=== PATIENT | female | born 1950 | race Caucasian/White ===

== ENCOUNTER 2024-11-17 20:14 | Emergency (ER) | payer MEDICARE ==
[2024-11-17] VITALS (9 sets, daily range): BP systolic 127–139; BP diastolic 50–64
[~2024-11-17] VITALS: Ht 157.5 cm; Wt 62.1 kg
[~2024-11-17 20:14] MED LIST: ALTOPREV40 MG PO; ATENOLOL25 MG PO; ESTRACE VAG0.1 MG/GM VA; LEVOTHYROXIN50 MC1 PO; TENORMIN25 M1
[2024-11-17] MEDS ORDERED: SODIUM CHLORIDE 0.9% 1,000 ML IV ONE (20:50)
[2024-11-17] MEDS ORDERED: Diph, Acellular Pertussis, Tet 0.5 ML/VIAL (Tdap) SDV IM ONE (20:50)
[2024-11-17] MEDS ORDERED: NEOMYCIN-BACITRACIN-POLYMYXIN 0.5 GM/PAK PAK TOP ONE (20:50)
[2024-11-17 21:13] LABS: BASO% 0.1 % (0-3); EOS% 0.1 % (0-8); HEMATOCRIT 38.5 % (37.0-47.0); HEMOGLOBIN 12.8 g/dl (12.0-16.0); IMMATURE GRANULOCYTES 0.1 % (0.0-5.0); MEAN CELL VOLUME 89.1 fL CALC (80.0-100.0); MEAN CORPUSCULAR HGB 29.6 pG CALC (26.0-32.0); MEAN CORPUSCULAR HGB CONC 33.2 g/dL CAL (32.0-36.0); MONO% 7.5 % (2-13); NEUT# 11.95 thou/uL (2.00-7.15); NEUT% 84.2 % (42-76); RED BLOOD COUNT 4.32 mill/uL (4.20-5.60); RED CELL DISTRI WIDTH 13.1 % (11.5-15.5)
[2024-11-17] MEDS ORDERED: SODIUM CHLORIDE 0.9% 100 ML IV ONE (21:19)
[2024-11-17 21:24] LABS: ALKALINE PHOSPHATASE 71 u/l (38-126); ANION GAP 10 (6-22 (CALC)); BILIRUBIN, TOTAL 0.8 mg/dL (0.02-1.3); BUN 9 mg/dL (8-23); BUN/CREATININE RATIO 13 (12-20 (CALC)); CARBON DIOXIDE 28 mmol/l (22-30); CHLORIDE 100 mmol/l (95-108); CREATININE 0.7 mg/dL (0.5-1.0); ESTIMATED GFR 91 ML/MIN (>=90 (CALC)); POTASSIUM 3.9 mmol/l (3.5-5.1); SGOT/AST 42 u/l (9-36); SODIUM 135 mmol/l (137-146); TOTAL PROTEIN 6.7 g/dL (6.3-8.2)
[2024-11-17 21:54] LABS: TSH, 3RD GENERATION 0.18 uIU/mL (0.47 - 4.68)
[2024-11-17 22:31] LABS: URINE BILIRUBIN - DIPSTICK Negative (NEGATIVE); URINE BLOOD DIPSTICK Negative (NEGATIVE); URINE COLOR Yellow; URINE GLUCOSE - DIPSTICK Negative (NEGATIVE); URINE KETONE Trace mg/dL (NEGATIVE); URINE LEUK ESTERASE Trace (NEGATIVE); URINE NITRITE - DIPSTICK Negative (Negative); URINE PROTEIN - DIPSTICK Negative (NEG-TRACE); URINE UROBILINOGEN - DIPSTICK 0.2 E.U./dL (0.2)
[2024-11-17] MEDS ORDERED: KEPPRA500 M2 PO (22:38)
[2024-11-17] MEDS ORDERED: ASPIRINCHW 81MG PO (22:57)
[2024-11-17] MEDS ORDERED: MULTIVITAMI9 PO (22:59)
[2024-11-17] MEDS ORDERED: OS-CAL 500500 M1 PO (23:12)
[2024-11-18] MEDS ORDERED: B COMPLEX FORMU1 TAB (01:14)
[2024-11-18] MEDS ORDERED: ATORVASTATIN CA20 MG PO (01:15)
[2024-11-18] MEDS ORDERED: VITAMIN C500 M6 PO (01:16)
[2024-11-18] MEDS ORDERED: AMLODIPINE BESYL5 MG PO (01:17)
[2024-11-18] MEDS ORDERED: LEVOTHYROXIN75 MC1 PO (01:19)
== END 2024-11-17 22:55 | disposition home or self-care (01) ==
LOC: ED 20:14
PROVIDERS: Family Medicine
DX: R55 Syncope and collapse (principal); R56.9 Unspecified convulsions; I10 Essential (primary) hypertension; F32.A Depression, unspecified; Z87.820 Personal history of traumatic brain injury
CPT/HCPCS: 90715; J1953